=== PATIENT | female | born 1980 | race Caucasian/White ===

== ENCOUNTER 2021-12-22 08:45 | Outpatient (RCR) | payer BC, SELFPAY | END 2022-02-05 08:43 | disposition home or self-care (01) | PROVIDERS: PCP Family Medicine; Visit Provider Obstetrics & Gynecology | DX: M54.50 Low back pain, unspecified (principal); R26.9 Unspecified abnormalities of gait and mobility; Z51.89 Encounter for other specified aftercare | CPT/HCPCS: 97110; 97140 ==

== ENCOUNTER 2022-04-15 13:09 | Outpatient (CLI) | payer BC, SELFPAY ==
[2022-04-15 13:42] LABS: Strep A DNA Probe* NOT DETECTED (Not Detectd)
== END 2022-04-15 13:10 | disposition home or self-care (01) ==
LOC: NFLDUCREF 13:09
PROVIDERS: PCP Family Medicine; Visit Provider Student in an Organized Health Care Education/Training Program
DX: J02.9 Acute pharyngitis, unspecified (principal)
CPT/HCPCS: 87651

== ENCOUNTER 2023-03-15 10:50 | Outpatient (CLI) | payer BC, SELFPAY | END 2023-03-15 10:51 | disposition home or self-care (01) | PROVIDERS: PCP Nurse Practitioner Family; Visit Provider Nurse Practitioner Family | DX: Z00.00 Encounter for general adult medical examination without abnormal findings (principal); N92.1 Excessive and frequent menstruation with irregular cycle; E78.00 Pure hypercholesterolemia, unspecified; R68.82 Decreased libido | CPT/HCPCS: 84443; 85025 ==

== ENCOUNTER 2023-03-24 14:55 | Outpatient (CLI) | payer BC, SELFPAY ==
--- NOTE | 2023-03-24 15:00 | CRLHL7_ITS ---
For Patients: As a result of the Century Cures Act, medical imaging exams and procedure reports are released immediately into your electronic medical record. You may view this report before your referring provider. If you have questions, please contact your health care provider. CLINICAL HISTORY: EXCESSIVE AND FREQUENT MENSTRUATION, PAIN TECHNIQUE: 2D wells scale ultrasound. In addition color Doppler and spectral Doppler analysis was performed of the pelvis using a transabdominal and transvaginal approach. FINDINGS: Uterine echotexture is heterogeneous. No fibroids. section scar noted. Cervical nabothian cysts are present. Uterus measures 8.3 x 4.9 x 5.2 cm. The endometrial lining measures 8 mm in thickness. The right ovary measures 2.7 x 2.3 x 2.0 cm in size and the left ovary measures 3.1 x 1.5 x 2.3 cm. The ovaries demonstrate normal arterial and venous blood flow on color Doppler and spectral Doppler analysis. Trace physiologic free fluid. IMPRESSION: Endometrium measures 8 millimeters. No uterine fibroids. Normal ovaries. No torsion. Dictated by Jose Guadalupe MD @ 03/24/2023 3:52:53 PM (Electronically Signed)
== END 2023-03-24 14:56 | disposition home or self-care (01) ==
LOC: US 14:55
PROVIDERS: PCP Nurse Practitioner Family; Visit Provider Nurse Practitioner Family
DX: N92.1 Excessive and frequent menstruation with irregular cycle (principal); R93.89 Abnormal findings on diagnostic imaging of other specified body structures
CPT/HCPCS: 76830; 76856; 93976

== ENCOUNTER 2023-06-29 13:31 | Outpatient (CLI) | payer BC, SELFPAY ==
--- NOTE | 2023-06-29 13:40 | CRLHL7_ITS ---
For Patients: As a result of the Century Cures Act, medical imaging exams and procedure reports are released immediately into your electronic medical record. You may view this report before your referring provider. If you have questions, please contact your health care provider. BILATERAL SCREENING MAMMOGRAM WITH COMPUTER-AIDED DETECTION AND TOMOSYNTHESIS TECHNIQUE: CC and MLO views were obtained. These mammographic images have been obtained using full-field digital technique. These mammographic images were interpreted with the benefit of computer-aided detection. Breast Tomosynthesis was used in this interpretation. COMPARISON FILM: Baseline. FINDINGS: The breasts are heterogeneously dense, which may obscure small masses. IMPRESSION: There is no radiographic evidence for malignancy. ASSESSMENT: BI-RADS Category 1: Negative RECOMMENDATION: Routine screening mammogram in 1 year. A lay language report of this examination will be provided to the patient. Jose Guadalupe M.D. Diagnostic Radiologist [email or web address] SP/Dictated by: Jose Guadalupe MD @ 06/30/2023 11:50:00 AM (Electronically Signed)
== END 2023-06-29 13:32 | disposition home or self-care (01) ==
PROVIDERS: PCP Nurse Practitioner Family; Visit Provider Nurse Practitioner Family
DX: Z12.31 Encounter for screening mammogram for malignant neoplasm of breast (principal); R92.2 Inconclusive mammogram
CPT/HCPCS: 77063; 77067

== ENCOUNTER 2025-03-20 09:10 | Outpatient (CLI) | payer BC, SELFPAY ==
[2025-03-22 04:01] LABS: HPV Source Cervix
[2025-03-25 09:46] LABS: Pap Test Digital Imaging Done
== END 2025-03-20 09:11 | disposition home or self-care (01) ==
PROVIDERS: PCP Nurse Practitioner Family; Visit Provider Registered Nurse
DX: R53.83 Other fatigue (principal); Z12.4 Encounter for screening for malignant neoplasm of cervix
CPT/HCPCS: 82306; 84443; 87624; 87625; 88141; 88142; 88175

== ENCOUNTER 2025-03-27 08:35 | Outpatient (CLI) | payer BC, SELFPAY ==
--- NOTE | 2025-03-27 08:45 | CRLHL7_ITS ---
For Patients: As a result of the Cures Act, medical imaging exams and procedure reports are released immediately into your electronic medical record. You may view this report before your referring provider. If you have questions, please contact your health care provider. INDICATION: BILATERAL SCREENING MAMMOGRAM, ASYMPTOMATIC 44 Y/O FEMALE COMPARISON: 06/29/2023 TECHNIQUE: Digital mammogram in CC and MLO projections including computer-aided detection (CAD) and tomosynthesis. BREAST COMPOSITION: The breasts are heterogeneously dense, which may obscure small masses. FINDINGS: No suspicious findings. ASSESSMENT: BI-RADS 1 Negative RECOMMENDATION: Annual screening mammogram. A lay language report of this examination will be provided to the patient. Dictated by: Jose Guadalupe MD @ 03/27/2025 11:08:38 (Electronically Signed)
== END 2025-03-27 08:36 | disposition home or self-care (01) ==
LOC: MAMMO 08:36
PROVIDERS: PCP Nurse Practitioner Family; Visit Provider Registered Nurse
DX: Z12.31 Encounter for screening mammogram for malignant neoplasm of breast (principal); R92.333 Mammographic heterogeneous density, bilateral breasts
CPT/HCPCS: 77063; 77067